=== PATIENT | female | born 1955 | race Caucasian/White ===

== ENCOUNTER 2020-07-22 08:55 | Observation (INO) ==
[2020-07-22] MEDS ORDERED: guaiFENesin 100 mg/5 ml LIQ unit dose cup PO ONE (09:47)
[2020-07-22 10:25] LABS: ABS Basophils 0.1 10^3/ul (0-0.2); ABS Eosinophils 0.1 10^3/ul (0-0.6); ABS Lymphocytes 1.2 10^3/ul (1.0-4.8); ABS Monocytes 0.5 10^3/ul (0-0.8); ABS Neutrophils 5.2 10^3/ul (1.5-7.7); Eosinophil % 1.4 %; Hematocrit 35 % (35-47); Hemoglobin 11.5 g/dL (12.0-16.0); Lymphocyte % 16.9 %; Mean Corpuscular HGB Conc 33 g/dL (31-36); Mean Corpuscular Hemoglobin 30 pg (27-31); Mean Corpuscular Volume 91 fL (80-97); Mean Platelet Volume 8.2 fL (7.4-10.4); Platelet Count 268 10^3/uL (150-450); Red Blood Count 3.84 10^6 /uL (3.70-4.87); Red Cell Distribution Width 14 % (10-15); White Blood Count 7.1 10^3/uL (3.5-10.8)
[2020-07-22 10:37] LABS: Influenza A Molecular Negative (Negative); Influenza B Molecular Negative (Negative)
[2020-07-22 10:46] LABS: ALT 11 U/L (7-52); AST 16 U/L (13-39); Albumin 3.7 g/dL (3.2-5.2); Albumin/Globulin Ratio 1.4 (1-3); Alkaline Phosphatase 90 U/L (34-104); Anion Gap 6 mmol/L (2-11); BUN/Creatinine Ratio 23.1 (8-20); Blood Urea Nitrogen 15 mg/dL (6-24); C Reactive Protein 63.54 mg/L (<8.01); CO2 Carbon Dioxide 27 mmol/L (22-32); Calcium 8.9 mg/dL (8.6-10.3); Chloride 102 mmol/L (101-111); EGFR African American 111.4 (>60); EGFR Non-African American 92.1 (>60); Globulin 2.7 g/dL (2-4); Glucose 103 mg/dL (70-100); Sodium 135 mmol/L (135-145); Total Protein 6.4 g/dL (6.4-8.9)
[2020-07-22 10:50] LABS: Troponin I 0.05 ng/mL (<0.03)
[2020-07-22] MEDS ORDERED: Iohexol 350 (CONTRAST) 500 ML MDV IV ONE (13:18)
[2020-07-22 14:00] LABS: Troponin I 0.04 ng/mL (<0.03)
[2020-07-22] MEDS ORDERED: Ondansetron 4 mg VIAL 2 MG/ML 2 ml VIAL IV PRN (14:35)
[2020-07-22] MEDS ORDERED: NS 0.9% 1000 ml BAG 1,000 ML IV SCH (14:45)
[2020-07-22] MEDS ORDERED: cefTRIAXone 1 gm/50 mL NS BAG 1 GM/50 ML BAG IVPB SCH (15:30)
[2020-07-22] MEDS ORDERED: Azithromycin 500 mg/250 ml NS 500 MG/250 ML BAG IVPB SCH (16:00)
[2020-07-22] MEDS: Enoxaparin 40 MG/0.4 ML SYR SUBCUT SCH (16:20)
[2020-07-23 05:59] LABS: ABS Eosinophils 0.1 10^3/ul (0-0.6); ABS Lymphocytes 1.7 10^3/ul (1.0-4.8); ABS Monocytes 0.5 10^3/ul (0-0.8); ABS Neutrophils 3.6 10^3/ul (1.5-7.7); Eosinophil % 2.1 %; Hematocrit 32 % (35-47); Hemoglobin 10.6 g/dL (12.0-16.0); Lymphocyte % 28.7 %; Mean Corpuscular HGB Conc 33 g/dL (31-36); Mean Corpuscular Hemoglobin 30 pg (27-31); Mean Corpuscular Volume 91 fL (80-97); Platelet Count 244 10^3/uL (150-450); Red Blood Count 3.48 10^6 /uL (3.70-4.87); Red Cell Distribution Width 14 % (10-15); White Blood Count 6.1 10^3/uL (3.5-10.8)
[2020-07-23 06:14] LABS: BUN/Creatinine Ratio 21.1 (8-20); Calcium 8.7 mg/dL (8.6-10.3); EGFR African American 129.6 (>60); EGFR Non-African American 107.1 (>60)
[2020-07-23] MEDS ORDERED: Albuterol HFA INHALER 8 gm MDI INH PRN (11:59)
[2020-07-23] MEDS ORDERED: Albuterol/Ipratropium NEB.SOL (2.5/0.5 MG) 3 ML NEB.SOLN INH SCH (12:00)
[2020-07-23] MEDS: Albuterol/Ipratropium NEB.SOL (2.5/0.5 MG) 3 ML NEB.SOLN INH SCH ×2 (12:34→19:29)
[2020-07-23] MEDS: Enoxaparin 40 MG/0.4 ML SYR SUBCUT SCH (16:10)
[2020-07-24 10:42] VITALS: BP 132/70
== END 2020-07-24 14:15 | disposition home or self-care (01) ==
LOC: ED 08:55 → MED 08:55
PROVIDERS: ADMIT Internal Medicine; ATTEND Student in an Organized Health Care Education/Training Program